=== PATIENT | female | born 1955 | race Caucasian/White ===

== ENCOUNTER 2016-09-15 14:33 | Emergency (ER) | payer MEDICARE, MEDICAID ==
[2016-09-15 14:51] VITALS: BP 159/79
--- NOTE | 2016-09-15 15:13 | EDM.PDOC ---
ED HPI GENERAL MEDICAL PROBLEM - General Chief Complaint: Neurological Problem Stated Complaint: SEIZURE Time Seen by Provider: 09/15/16 15:00 Source of Information: Reports: Other (caregiver) History Limitations: Reports: Other (pt has developmental delay, and is nonverbal) - History of Present Illness INITIAL COMMENTS - FREE TEXT/NARRATIVE: HISTORY AND PHYSICAL: History of present illness: [Patient is brought to the emergency room by her caregiver. Patient resides at a skilled nursing for other adults with developmental delay. Patient has a known history of seizure disorder. Seizures are not grand mal and typically last 1-2 minutes. Caregiver became concerned when seizure lasted 14-15 minutes. Patient is behaving normally since, and seems more tired than usual. Has had no recent changes from her usual medications. Has not had a fever, and appetite has been normal. Today she was at a group work site where she was with other members when the seizure occurred. No decreased appetite, nausea or vomiting. Has not had urinary incontinence, she wears an adult diaper, and is toileted regularly. She has otherwise been well lately. ] Review of systems: As per history of present illness and below otherwise all systems reviewed and negative. Past medical history: As per history of present illness and as reviewed below otherwise noncontributory. Surgical history: As per history of present illness and as reviewed below otherwise noncontributory. Social history: No reported history of drug or alcohol abuse. Family history: As per history of present illness and as reviewed below otherwise noncontributory. Physical exam: General: She is sitting in her wheelchair and appears comfortable. She is nonverbal and does not make eye contact, which is apparently normal for her. HEENT: Atraumatic, normocephalic. PERRLA. Lips appear moist. Lungs: Clear to auscultation, breath sounds equal bilaterally. Heart: S1S2, regular rate rhythm.negative for clicks, rubs, or JVD. Abdomen: Soft, nondistended, nontender. Pelvis: Stable nontender. Genitourinary: Deferred. Rectal: Deferred. Extremities: Atraumatic, negative for cords or calf pain. Neurovascular unremarkable. Diagnostics: [CBC, CMP] Impression: [seizures] Plan: [Discussed patient's seizure with her PCP Dr. Gagan Posada who recommends that patient be prescribed DiaStat and scheduled w/ local neurology. Pt is already scheduled to see Dr. Junior on 10/07/16. Order given for Diastat 10mg for seizures lasting longer than 5 minutes. Ok to repeat in 24 hours x 1 if needed. Strict follow up precautions are discussed. ] Definitive disposition and diagnosis as appropriate pending reevaluation and review of above. - Related Data Allergies Allergy/AdvReac Type Severity Reaction Status Date / Time carbamazepine [From Tegretol] Allergy Cannot Verified 09/20/15 19:49 Remember erythromycin base Allergy Cannot Verified 09/20/15 19:49 Remember Home Meds: Home Meds Multivitamin [Multivitamins] 1 tab PO DAILY 06/02/15 [History] Potassium Chloride [Klor-Con] 1 tab PO DAILY 06/02/15 [History] Sucralfate 1 gram PO QID 06/02/15 [History] carBAMazepine [Carbamazepine] 1 tab PO TID 06/02/15 [History] lamoTRIgine [Lamotrigine] 1 tab PO TID 06/02/15 [History] Past Medical History Gastrointestinal History: Reports: GERD Neurological History: Reports: Seizure Psychiatric History: Reports: Other (See Below) 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 - Physical Exam Exam: See Below Course - Vital Signs Last Recorded V/S: Last Vital Signs Temp 98.0 F 09/15/16 14:48 Pulse 89 09/15/16 14:48 Resp 16 09/15/16 14:48 BP 159/79 H 09/15/16 14:48 Pulse Ox 100 09/15/16 14:48 - Orders/Labs/Meds Labs: Laboratory Tests 09/15/16 09/15/16 Range/Units 15:27 15:27 WBC 9.49 (4.0-11.0) K/uL RBC 4.93 (4.30-5.90) M/uL Hgb 15.2 (12.0-16.0) g/dL Hct 44.9 (36.0-46.0) % MCV 91.1 (80.0-98.0) fL MCH 30.8 (27.0-32.0) pg MCHC 33.9 (31.0-37.0) g/dL RDW Std Deviation 43.0 (28.0-62.0) fl RDW Coeff of Amy 13 (11.0-15.0) % Plt Count 193 (150-400) K/uL MPV 10.50 (7.40-12.00) fL Add Manual Diff YES Neutrophils % (Manual) 39 L (48.0-80.0) % Band Neutrophils % 1 % Lymphocytes % (Manual) 43 H (16.0-40.0) % Monocytes % (Manual) 14 (0.0-15.0) % Eosinophils % (Manual) 2 (0.0-7.0) % Basophils % (Manual) 1 (0.0-1.5) % Nucleated RBC % 0.0 /100WBC Absolute Seg Neuts 3.7 Band Neutrophils # 0.1 Lymphocytes # (Manual) 4.1 Monocytes # (Manual) 1.3 Eosinophils # (Manual) 0.2 Basophils # (Manual) 0 Nucleated RBCs # 0 K/uL Sodium 140 (136-146) mmol/L Potassium 4.2 (3.5-5.1) mmol/L Chloride 108 (98-110) mmol/L Carbon Dioxide 20 L (21-31) mmol/L BUN 16 (6.0-23.0) mg/dL Creatinine 1.2 (0.6-1.5) mg/dL Est Cr Clr Drug Dosing TNP Estimated GFR (MDRD) 45.7 ml/min Glucose 89 (60-110) mg/dL Calcium 9.6 (8.8-10.8) mg/dL Total Bilirubin 0.2 (0.1-1.5) mg/dL AST 23 (5-40) IU/L ALT 20 (8-54) IU/L Alkaline Phosphatase 160 H (40-150) Total Protein 8.6 H (6.0-8.0) g/dL Albumin 4.5 (3.4-4.8) g/dL Globulin 4.1 H (2.0-3.5) g/dL Albumin/Globulin Ratio 1.1 L (1.3-2.8) Departure - Departure Time of Disposition: 16:05 Disposition: Home, Self-Care 01 Condition: good Clinical Impression: Seizures - Discharge Information Instructions: Nonepileptic Seizures Referrals: Gagan Posada MD [Primary Care Provider] - Forms: ED Department Discharge Additional Instructions: The following information is given to patients seen in the emergency department who are being discharged to home. This information is to outline your options for follow-up care. We provide all patients seen in our emergency department with a follow-up referral. The need for follow-up, as well as the timing and circumstances, are variable depending upon the specifics of your emergency department visit. If you don't have a primary care physician on staff, we will provide you with a referral. We always advise you to contact your personal physician following an emergency department visit to inform them of the circumstance of the visit and for follow-up with them and/or the need for any referrals to a consulting specialist. The emergency department will also refer you to a specialist when appropriate. This referral assures that you have the opportunity for follow-up care with a specialist. All of these measure are taken in an effort to provide you with optimal care, which includes your follow-up. Under all circumstances we always encourage you to contact your private physician who remains a resource for coordinating your care. When calling for follow-up care, please make the office aware that this follow-up is from your recent emergency room visit. If for any reason you are refused follow-up, please contact the [facility] emergency department at and asked to speak to the emergency department charge nurse. [facility] Special[facility] care- [facility] [address] [place] [address], [address] [place] [address] Followup as scheduled with Dr. Junior at the clinic listed above. Diastat as prescribed. return to ER as needed as discussed.
[2016-09-15 15:58] LABS: CHLORIDE,CL 108 mmol/L (98-110); SODIUM,NA 140 mmol/L (136-146)
== END 2016-09-15 16:18 | disposition home or self-care (01) ==
LOC: MW.ED 14:33
DX: R56.9 Unspecified convulsions (principal); K21.9 Gastro-esophageal reflux disease without esophagitis; Z98.890 Other specified postprocedural states; Z88.1 Allergy status to other antibiotic agents; Z88.8 Allergy status to other drugs, medicaments and biological substances
CPT/HCPCS: 36415; 80053; 85025; 99283; 99284

== ENCOUNTER 2016-11-05 18:29 | Emergency (ER) | payer MEDICARE, MEDICAID ==
--- NOTE | 2016-11-05 18:47 | EDM.PDOC ---
ED HPI GENERAL MEDICAL PROBLEM - General Chief Complaint: Laceration Stated Complaint: FALL/HIT HEAD Time Seen by Provider: 11/05/16 18:35 Source of Information: Reports: Patient History Limitations: Reports: No Limitations - History of Present Illness INITIAL COMMENTS - FREE TEXT/NARRATIVE: History of present illness: [61-year-old low functioning female brought in by care worker status post fall out of chair onto face. Macerated laceration midline to the forehead. Care provider indicated that the patient was presenting at her baseline, but there had been no loss of consciousness, nausea, or vomiting.] Review of systems: As per history of present illness and below otherwise all systems reviewed and negative. Past medical history: As per history of present illness and as reviewed below otherwise noncontributory. Surgical history: As per history of present illness and as reviewed below otherwise noncontributory. Social history: No reported history of drug or alcohol abuse. Family history: As per history of present illness and as reviewed below otherwise noncontributory. Physical exam: HEENT: Forehead midline macerated break in skin, normocephalic, pupils reactive , negative for conjunctival pallor or scleral icterus, mucous membranes moist, throat clear, neck supple, nontender, trachea midline. Lungs: Clear to auscultation, breath sounds equal bilaterally, chest nontender. Heart: S1S2, regular, negative for clicks, rubs, or JVD. Abdomen: Soft, nondistended, nontender. Negative for masses or hepatosplenomegaly. Negative for costovertebral tenderness. Pelvis: Stable nontender. Genitourinary: Deferred. Rectal: Deferred. Extremities: Atraumatic, negative for cords or calf pain. Neurovascular unremarkable. Neuro: Awake, alert, oriented. Cranial nerves II through XII unremarkable. Cerebellum unremarkable. Motor and sensory unremarkable throughout. Exam nonfocal. Skin: 2 and half to 3 cm macerated area to middle of forehead Area cleaned Steri-Strips applied Dermabond placed to approximated edges Due to macerated edges and patient's baseline mentation was determined this was the safest way to obtain any nature of closure Diagnostics: [CT of head] Therapeutics: [] Impression: [Concussion/laceration] Plan: [Antibiotics follow-up with PCP] Definitive disposition and diagnosis as appropriate pending reevaluation and review of above. - Related Data Allergies Allergy/AdvReac Type Severity Reaction Status Date / Time carbamazepine [From Tegretol] Allergy Cannot Verified 11/05/16 18:53 Remember erythromycin base Allergy Cannot Verified 11/05/16 18:53 Remember Home Meds: Home Meds Cephalexin [Keflex] 500 mg PO QID #40 capsule 11/05/16 [Rx] Multivitamin [Multivitamins] 1 tab PO DAILY 11/05/16 [History] Potassium Chloride [Klor-Con M20] 20 meq PO DAILY 11/05/16 [History] Sucralfate 1 gm PO QID 11/05/16 [History] carBAMazepine [Carbamazepine] 1 tab PO TID 11/05/16 [History] lamoTRIgine [Lamotrigine] 100 mg PO ASDIRECTED 11/05/16 [History] Past Medical History Gastrointestinal History: Reports: GERD Neurological History: Reports: Seizure Psychiatric History: Reports: Other (See Below) 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 - Past Surgical History HEENT Surgical History: Reports: Oral Surgery Musculoskeletal Surgical History: Reports: Other (See Below) Other Musculoskeletal Surgeries/Procedures:: foot surgery, dislocated shoulder Social & Family History - Family History Family Medical History: Unobtainable - Tobacco Use Smoking Status *Q: Never Smoker Second Hand Smoke Exposure: No - Recreational Drug Use Recreational Drug Use: No ED ROS GENERAL - Review of Systems Review Of Systems: See Below (History of present illness) ED EXAM, SKIN/RASH Exam: See Below (See history of present illness) Course - Vital Signs Last Recorded V/S: Last Vital Signs Temp 36.7 C 11/05/16 18:35 Pulse 83 11/05/16 18:35 Resp 18 11/05/16 18:35 BP Pulse Ox 96 11/05/16 18:35 - Orders/Labs/Meds Orders: Active Orders 24 hr Category Date Time Status Head wo Cont [CT] Stat Exams 11/05/16 18:42 Taken Meds: Medications Discontinued Medications Generic Name Dose Route Start Last Admin Trade Name Freq PRN Reason Stop Dose Admin Octyl Cyanoacrylate 1 applic 11/05/16 19:27 Dermabond Advance TOP 11/05/16 19:28 ONETIME ONE Departure - Departure Time of Disposition: 19:51 Disposition: Home, Self-Care 01 Condition: Good Clinical Impression: Broken skin, Contusion, Concussion - Discharge Information Forms: ED Department Discharge Additional Instructions: The following information is given to patients seen in the emergency department who are being discharged to home. This information is to outline your options for follow-up care. We provide all patients seen in our emergency department with a follow-up referral. The need for follow-up, as well as the timing and circumstances, are variable depending upon the specifics of your emergency department visit. If you don't have a primary care physician on staff, we will provide you with a referral. We always advise you to contact your personal physician following an emergency department visit to inform them of the circumstance of the visit and for follow-up with them and/or the need for any referrals to a consulting specialist. The emergency department will also refer you to a specialist when appropriate. This referral assures that you have the opportunity for follow-up care with a specialist. All of these measure are taken in an effort to provide you with optimal care, which includes your follow-up. Under all circumstances we always encourage you to contact your private physician who remains a resource for coordinating your care. When calling for follow-up care, please make the office aware that this follow-up is from your recent emergency room visit. If for any reason you are refused follow-up, please contact the [facility] Emergency Department at and asked to speak to the emergency department charge nurse. Provide antibiotics the patient Wake her every 2-4 hours to determine that she still her baseline for the next 24 hours Patient starts acting somnolent has nausea vomiting or is not herself return to the ED Follow-up with primary care provider once 2 days Return to ED as needed as discussed - My Orders Last 24 Hours: My Active Orders 11/05/16 18:42 Head wo Cont [CT] Stat - Assessment/Plan Last 24 Hours: My Active Orders 11/05/16 18:42 Head wo Cont [CT] Stat
[2016-11-05] MEDS ORDERED: Octyl 2-Cyanoacrylate 1 Tube TOP ONE (19:27)
[2016-11-05 20:26] VITALS: BP 124/68
--- NOTE | 2016-11-07 13:10 | CT ---
EXAM DATE: 11/05/16 PATIENT'S AGE: 61 Patient: KEANU MILNER Facility: [place], [place] Site . Site : [id number] Study: CT Head [id number] 7:15:41 PM Ordering Physician: Doctor Rice Final Report: INDICATION: Laceration to the forehead. TECHNIQUE: Noncontrast head CT. COMPARISON: February 23, 2013. FINDINGS: Again noted is rather marked cerebellar atrophy. There is also cerebral atrophy. 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 This may be related to a congenital anomaly. No calvarial or skullbase fracture identified. The included paranasal sinuses and mastoid air cells are clear except for minor mucosal thickening in the inferior right maxillary sinus. There is likely is a soft tissue defect along the frontal bone presumably related to a laceration. IMPRESSION: 1. No acute intracranial hemorrhage. Chronic changes including atrophy of the cerebellar hemispheres and less so the cerebral hemispheres with ventriculomegaly and enlargement of the 4th ventricle. 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 2. No calvarial or skullbase fracture. 3. Incidental note is made of a skin defect overlying the frontal bone which may reflect the patient`s laceration. Dictated by Dilshad Saldaña MD @ 11/05/2016 7:46:02 PM Dictated by: Dilshad Saldaña MD @ 11/05/2016 19:46:11 (Electronic Signature) Report Signed by Proxy. XU
== END 2016-11-05 20:15 | disposition home or self-care (01) ==
LOC: MW.ED 18:29
DX: S06.0X0A Concussion without loss of consciousness, initial encounter (principal); S01.81XA Laceration without foreign body of other part of head, initial encounter; K21.9 Gastro-esophageal reflux disease without esophagitis; Z88.1 Allergy status to other antibiotic agents; Z79.899 Other long term (current) drug therapy; W01.10XA Fall on same level from slipping, tripping and stumbling with subsequent striking against unspecified object, initial encounter
CPT/HCPCS: 12011; 70450; 99283; A9270

== ENCOUNTER 2017-05-23 11:23 | Emergency (ER) | payer MEDICARE, MEDICAID ==
--- NOTE | 2017-05-23 11:40 | EDM.PDOC ---
ED HPI GENERAL MEDICAL PROBLEM - General Chief Complaint: Respiratory Problem Stated Complaint: COUGH Time Seen by Provider: 05/23/17 11:39 Source of Information: Reports: Patient - History of Present Illness INITIAL COMMENTS - FREE TEXT/NARRATIVE: HISTORY AND PHYSICAL: History of present illness: [Patient presents with cough, she is nonverbal, she presents from the [facility] with a care worker No fever nausea vomiting chills sweats ] Review of systems: As per history of present illness and below otherwise all systems reviewed and negative. Past medical history: As per history of present illness and as reviewed below otherwise noncontributory. Surgical history: As per history of present illness and as reviewed below otherwise noncontributory. Social history: No reported history of drug or alcohol abuse. Family history: As per history of present illness and as reviewed below otherwise noncontributory. Physical exam: HEENT: Atraumatic, normocephalic, pupils reactive, negative for conjunctival pallor or scleral icterus, mucous membranes moist, throat clear, neck supple, nontender, trachea midline. Lungs: Clear to auscultation, breath sounds equal bilaterally, chest nontender. Heart: S1S2, regular, negative for clicks, rubs, or JVD. Abdomen: Soft, nondistended, nontender. Negative for masses or hepatosplenomegaly. Negative for costovertebral tenderness. Pelvis: Stable nontender. Genitourinary: Deferred. Rectal: Deferred. Extremities: Atraumatic, negative for cords or calf pain. Neurovascular unremarkable. Neuro: Awake, alert, oriented. Cranial nerves II through XII unremarkable. Cerebellum unremarkable. Motor and sensory unremarkable throughout. Exam nonfocal. Diagnostics: [Chest 2 views Influenza A ] Therapeutics: [Levaquin 500 milligrams by mouth daily #10 no refill Continue current medications Return if symptoms persist or worsen or new concerning symptoms develop ] Impression: [Cough Consolidation/left basilar infiltrate likely pneumonia] Definitive disposition and diagnosis as appropriate pending reevaluation and review of above. - Related Data Allergies Allergy/AdvReac Type Severity Reaction Status Date / Time carbamazepine [From Tegretol] Allergy Cannot Verified 11/05/16 18:53 Remember erythromycin base Allergy Cannot Verified 11/05/16 18:53 Remember Home Meds: Home Meds Cephalexin [Keflex] 500 mg PO QID #40 capsule 11/05/16 [Rx] Multivitamin [Multivitamins] 1 tab PO DAILY 11/05/16 [History] Potassium Chloride [Klor-Con M20] 20 meq PO DAILY 11/05/16 [History] Sucralfate 1 gm PO QID 11/05/16 [History] carBAMazepine [Carbamazepine] 1 tab PO TID 11/05/16 [History] lamoTRIgine [Lamotrigine] 100 mg PO ASDIRECTED 11/05/16 [History] Past Medical History Gastrointestinal History: Reports: GERD Neurological History: Reports: Seizure Psychiatric History: Reports: Other (See Below) 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 ED EXAM, GENERAL - Physical Exam Exam: See Below Course - Vital Signs Last Recorded V/S: Last Vital Signs Temp 98.1 F 05/23/17 11:40 Pulse 95 05/23/17 11:40 Resp 20 05/23/17 11:40 BP 121/81 05/23/17 11:40 Pulse Ox 94 L 05/23/17 11:40 Departure - Departure Time of Disposition: 13:13 Disposition: Home, Self-Care 01 Condition: Good Clinical Impression: Pneumonia - Discharge Information Referrals: Gagan Posada MD [Primary Care Provider] - Forms: ED Department Discharge Additional Instructions: Medication as prescribed Return if symptoms persist or worsen or new concerning symptoms develop [id number] symptomatic therapies as needed The following information is given to patients seen in the emergency department who are being discharged to home. This information is to outline your options for follow-up care. We provide all patients seen in our emergency department with a follow-up referral. The need for follow-up, as well as the timing and circumstances, are variable depending upon the specifics of your emergency department visit. If you don't have a primary care physician on staff, we will provide you with a referral. We always advise you to contact your personal physician following an emergency department visit to inform them of the circumstance of the visit and for follow-up with them and/or the need for any referrals to a consulting specialist. The emergency department will also refer you to a specialist when appropriate. This referral assures that you have the opportunity for follow-up care with a specialist. All of these measure are taken in an effort to provide you with optimal care, which includes your follow-up. Under all circumstances we always encourage you to contact your private physician who remains a resource for coordinating your care. When calling for follow-up care, please make the office aware that this follow-up is from your recent emergency room visit. If for any reason you are refused follow-up, please contact the [facility] emergency department at and asked to speak to the emergency department charge nurse.
--- NOTE | 2017-05-23 13:01 | CR ---
EXAMINATION: Two-view chest (PA and Lateral views). HISTORY: Shortness of breath. FINDINGS: The trachea is midline. The heart is mildly enlarged. There is left basilar infiltrate noted. Trace p leural effusion is not excluded. No pneumothorax. Osseous structures appear unremarkable. IMPRESSION: 1. Left basilar consolidation, likely pneumonia.
[2017-05-23 19:13] VITALS: BP 121/82
== END 2017-05-23 13:24 | disposition home or self-care (01) ==
LOC: MW.ED 11:23
DX: J18.9 Pneumonia, unspecified organism (principal); K21.9 Gastro-esophageal reflux disease without esophagitis; Z88.1 Allergy status to other antibiotic agents; Z79.899 Other long term (current) drug therapy
CPT/HCPCS: 71046; 71046-26; 87804; 99283

== ENCOUNTER 2017-08-09 16:27 | Emergency (ER) | payer MEDICARE, MEDICAID ==
[2017-08-09] MEDS ORDERED: Sodium Chloride 0.9% 500 ML IV SCH (17:00)
--- NOTE | 2017-08-09 17:05 | EDM.PDOC ---
ED HPI GENERAL MEDICAL PROBLEM - General Chief Complaint: Lower Extremity Injury/Pain Stated Complaint: CELLULITIS Time Seen by Provider: 08/09/17 17:05 Source of Information: Reports: Patient - History of Present Illness INITIAL COMMENTS - FREE TEXT/NARRATIVE: HISTORY AND PHYSICAL: History of present illness: [Patient presents with a cellulitis of her right foot, is a small lesion approximately 3 inches long by 2 inches wide on the lateral right foot essentially extending around an old surgical scar, this is from the very remote past. Patient is nonverbal and cannot provide history of any trauma or review of systems ] Review of systems: As per history of present illness and below otherwise all systems reviewed and negative. Past medical history: As per history of present illness and as reviewed below otherwise noncontributory. Surgical history: As per history of present illness and as reviewed below otherwise noncontributory. Social history: No reported history of drug or alcohol abuse. Family history: As per history of present illness and as reviewed below otherwise noncontributory. Physical exam: HEENT: Atraumatic, normocephalic, pupils reactive, negative for conjunctival pallor or scleral icterus, mucous membranes moist, throat clear, neck supple, nontender, trachea midline. Lungs: Clear to auscultation, breath sounds equal bilaterally, chest nontender. Heart: S1S2, regular, negative for clicks, rubs, or JVD. Abdomen: Soft, nondistended, nontender. Negative for masses or hepatosplenomegaly. Negative for costovertebral tenderness. Pelvis: Stable nontender. Genitourinary: Deferred. Rectal: Deferred. Extremities: Atraumatic, negative for cords or calf pain. Neurovascular unremarkable. Neuro: Awake, alert, oriented. Cranial nerves II through XII unremarkable. Cerebellum unremarkable. Motor and sensory unremarkable throughout. Exam nonfocal. Right foot unaffected above the ankle, chronic changes noted of the foot old surgical scar noted redness tenderness with mild swelling surrounding the old surgical scar otherwise neurovascularly intact capillary refill in 3 seconds no open lesion on skin Left foot unaffected capillary refill and 3 seconds neurovascularly intact Diagnostics: [CBC CMP UA blood cultures ]X-ray right foot 3 views Therapeutics: [Extremities strength by mouth twice a day #20 no refill first dose provided now Follow-up with primary care within 1 week for recheck Return if symptomssist or worsen despite treatment ] Impression: [Cellulitis left foot] Definitive disposition and diagnosis as appropriate pending reevaluation and review of above. - Related Data Allergies Allergy/AdvReac Type Severity Reaction Status Date / Time carbamazepine [From Tegretol] Allergy Cannot Verified 11/05/16 18:53 Remember erythromycin base Allergy Cannot Verified 11/05/16 18:53 Remember Home Meds: Home Meds Multivitamin [Multivitamins] 1 tab PO DAILY 11/05/16 [History] Potassium Chloride [Klor-Con M20] 20 meq PO DAILY 11/05/16 [History] Sucralfate 1 gm PO QID 11/05/16 [History] carBAMazepine [Carbamazepine] 1 tab PO TID 11/05/16 [History] lamoTRIgine [Lamotrigine] 100 mg PO TID 11/05/16 [History] Past Medical History Gastrointestinal History: Reports: GERD Neurological History: Reports: Seizure Psychiatric History: Reports: Other (See Below) Other Psychiatric History: mentally disabled Endocrine/Metabolic History: Reports: [place]'s Disease - Past Surgical History HEENT Surgical History: Reports: Oral Surgery Musculoskeletal Surgical History: Reports: Other (See Below) Other Musculoskeletal Surgeries/Procedures:: foot surgery, dislocated shoulder Social & Family History - Family History Family Medical History: Unobtainable - Tobacco Use Smoking Status *Q: Never Smoker Second Hand Smoke Exposure: No - Caffeine Use Caffeine Use: Reports: None - Recreational Drug Use Recreational Drug Use: No Review of Systems - Review of Systems Review Of Systems: ROS reveals no pertinent complaints other than HPI. ED EXAM, GENERAL - Physical Exam Exam: See Below Course - Vital Signs Last Recorded V/S: Last Vital Signs Temp 98.0 F 08/09/17 17:16 Pulse 75 08/09/17 17:16 Resp 18 08/09/17 17:16 BP 126/79 08/09/17 17:16 Pulse Ox 95 08/09/17 17:16 - Orders/Labs/Meds Orders: Active Orders 24 hr Category Date Time Status Foot Comp Min 3V Rt [CR] Stat Exams 08/09/17 17:20 Taken CULTURE BLOOD [BC] Stat Lab 08/09/17 17:15 Received CULTURE BLOOD [BC] Stat Lab 08/09/17 17:25 Received UA W/MICROSCOPIC [URIN] Stat Lab 08/09/17 16:57 Ordered Sodium Chloride 0.9% [Normal Saline] 500 ml Med 08/09/17 17:00 Active IV STAT Blood Culture x2 Reflex Set [OM.PC] Stat Oth 08/09/17 16:57 Ordered Medication Orders Sodium Chloride (Normal Saline) 500 mls @ 999 mls/hr IV STAT AUGIE Last Admin: 08/09/17 17:31 Dose: 999 mls/hr Labs: Laboratory Tests 08/09/17 08/09/17 Range/Units 17:15 17:15 WBC 8.81 (4.0-11.0) K/uL RBC 4.36 (4.30-5.90) M/uL Hgb 12.9 (12.0-16.0) g/dL Hct 39.4 (36.0-46.0) % MCV 90.4 (80.0-98.0) fL MCH 29.6 (27.0-32.0) pg MCHC 32.7 (31.0-37.0) g/dL RDW Std Deviation 49.1 (28.0-62.0) fl RDW Coeff of Amy 15 (11.0-15.0) % Plt Count 240 (150-400) K/uL MPV 10.50 (7.40-12.00) fL Neut % (Auto) 35.9 L (48.0-80.0) % Lymph % (Auto) 47.2 H (16.0-40.0) % Frontier % (Auto) 13.6 (0.0-15.0) % Eos % (Auto) 3.0 (0.0-7.0) % Baso % (Auto) 0.3 (0.0-1.5) % Neut # (Auto) 3.2 (1.4-5.7) K/uL Lymph # (Auto) 4.2 H (0.6-2.4) K/uL Frontier # (Auto) 1.2 H (0.0-0.8) K/uL Eos # (Auto) 0.3 (0.0-0.7) K/uL Baso # (Auto) 0.0 (0.0-0.1) K/uL Nucleated RBC % 0.0 /100WBC Nucleated RBCs # 0 K/uL Sodium 142 (136-145) mmol/L Potassium 4.1 (3.5-5.1) mmol/L Chloride 107 (98-107) mmol/L Carbon Dioxide 23.5 (21.0-32.0) mmol/L BUN 22 H (7.0-18.0) mg/dL Creatinine 0.7 (0.6-1.0) mg/dL Est Cr Clr Drug Dosing 51.91 mL/min Estimated GFR (MDRD) > 60.0 ml/min Glucose 95 (74-106) mg/dL Calcium 9.4 (8.5-10.1) mg/dL Total Bilirubin 0.2 (0.2-1.0) mg/dL AST 21 (15-37) IU/L ALT 22 (14-63) IU/L Alkaline Phosphatase 158 H (46-116) U/L Total Protein 8.3 H (6.4-8.2) g/dL Albumin 3.5 (3.4-5.0) g/dL Globulin 4.8 H (2.0-3.5) g/dL Albumin/Globulin Ratio 0.7 L (1.3-2.8) Meds: Medications Generic Name Dose Route Start Last Admin Trade Name Freq PRN Reason Stop Dose Admin Sodium Chloride 500 mls @ 999 mls/hr 08/09/17 17:00 08/09/17 17:31 Normal Saline IV 999 mls/hr STAT AUGIE Administration Departure - Departure Time of Disposition: 18:34 Disposition: Home, Self-Care 01 Condition: Good Clinical Impression: Cellulitis - Discharge Information Referrals: PCP,None [Primary Care Provider] - Forms: ED Department Discharge Additional Instructions: Medication as prescribed Return if symptoms persist or worsen or fever nausea vomiting chills sweats despite antibiotics Follow-up with primary care for recheck in one week [address] [address] [address] Gagan Posada The following information is given to patients seen in the emergency department who are being discharged to home. This information is to outline your options for follow-up care. We provide all patients seen in our emergency department with a follow-up referral. The need for follow-up, as well as the timing and circumstances, are variable depending upon the specifics of your emergency department visit. If you don't have a primary care physician on staff, we will provide you with a referral. We always advise you to contact your personal physician following an emergency department visit to inform them of the circumstance of the visit and for follow-up with them and/or the need for any referrals to a consulting specialist. The emergency department will also refer you to a specialist when appropriate. This referral assures that you have the opportunity for follow-up care with a specialist. All of these measure are taken in an effort to provide you with optimal care, which includes your follow-up. Under all circumstances we always encourage you to contact your private physician who remains a resource for coordinating your care. When calling for follow-up care, please make the office aware that this follow-up is from your recent emergency room visit. If for any reason you are refused follow-up, please contact the [facility] emergency department at and asked to speak to the emergency department charge nurse. - My Orders Last 24 Hours: My Active Orders 08/09/17 16:57 UA W/MICROSCOPIC [URIN] Stat Blood Culture x2 Reflex Set [OM.PC] Stat 08/09/17 17:00 Sodium Chloride 0.9% [Normal Saline] 500 ml IV STAT 08/09/17 17:15 CULTURE BLOOD [BC] Stat 08/09/17 17:20 Foot Comp Min 3V Rt [CR] Stat 08/09/17 17:25 CULTURE BLOOD [BC] Stat - Assessment/Plan Last 24 Hours: My Active Orders 08/09/17 16:57 UA W/MICROSCOPIC [URIN] Stat Blood Culture x2 Reflex Set [OM.PC] Stat 08/09/17 17:00 Sodium Chloride 0.9% [Normal Saline] 500 ml IV STAT 08/09/17 17:15 CULTURE BLOOD [BC] Stat 08/09/17 17:20 Foot Comp Min 3V Rt [CR] Stat 08/09/17 17:25 CULTURE BLOOD [BC] Stat
[2017-08-09 18:09] LABS: CHLORIDE,CL 107 mmol/L (98-107); SODIUM,NA 142 mmol/L (136-145)
[2017-08-09] MEDS ORDERED: Sulfamethoxazole/Trimethoprim 800-160 MG Tab PO ONE (18:36)
[2017-08-09 19:09] VITALS: BP 123/60
--- NOTE | 2017-08-10 09:50 | CR ---
EXAM DATE: 08/09/17 PATIENT'S AGE: 62 Patient: KEANU MILNER Facility: [place], [place] Site . Site : 1955 Study: XRay Extremity Right foot [id number] 6:09:08 PM Ordering Physician: Be Cruz Final Report: INDICATION: Pain TECHNIQUE: Two views right foot. FINDINGS: Three metallic alisha are seen in the bones of the right mid and hindfoot. Moderate degenerative arthritis right foot. Marked osteopenia. Partial fusion of many of the joints of the right mid and hindfoot. Moderate diffuse soft tissue swelling right foot especially dorsally. Partial subluxation and deformity of the right great toe likely chronic. No obvious fracture in right foot. Degenerative arthritis right ankle. Remainder negative. Dictated by Ron Laird MD @ Aug 09 2017 6:19PM (Electronic Signature) Report Signed by Proxy. XU
== END 2017-08-09 19:05 | disposition home or self-care (01) ==
LOC: MW.ED 16:27
DX: L03.115 Cellulitis of right lower limb (principal); Z79.899 Other long term (current) drug therapy; Z88.1 Allergy status to other antibiotic agents; Z88.8 Allergy status to other drugs, medicaments and biological substances
CPT/HCPCS: 36415; 73630; 80053; 85025; 87040; 96360; 99283; J7040

== ENCOUNTER 2017-10-13 18:26 | Emergency (ER) | payer MEDICARE, MEDICAID ==
--- NOTE | 2017-10-13 19:07 | EDM.PDOC ---
ED HPI GENERAL MEDICAL PROBLEM - General Chief Complaint: General Stated Complaint: SWOLLEN JAW Time Seen by Provider: 10/13/17 19:05 Source of Information: Reports: Patient - History of Present Illness INITIAL COMMENTS - FREE TEXT/NARRATIVE: HISTORY AND PHYSICAL: History of present illness: [Patient presents with swelling along left lower jawline and tenderness she is nonverbal patient she has poor dentition multiple tooth removal noted swelling and tenderness along the jawline she does not provide review of systems ] Review of systems: As per history of present illness and below otherwise all systems reviewed and negative. Past medical history: As per history of present illness and as reviewed below otherwise noncontributory. Surgical history: As per history of present illness and as reviewed below otherwise noncontributory. Social history: No reported history of drug or alcohol abuse. Family history: As per history of present illness and as reviewed below otherwise noncontributory. Physical exam: HEENT: Atraumatic, normocephalic, pupils reactive, negative for conjunctival pallor or scleral icterus, mucous membranes moist, throat clear, neck supple, nontender, trachea midline. Swelling and tenderness along left lower jaw Consistent with early dental abscess Lungs: Clear to auscultation, breath sounds equal bilaterally, chest nontender. Heart: S1S2, regular, negative for clicks, rubs, or JVD. Abdomen: Soft, nondistended, nontender. Negative for masses or hepatosplenomegaly. Negative for costovertebral tenderness. Pelvis: Stable nontender. Genitourinary: Deferred. Rectal: Deferred. Extremities: Atraumatic, negative for cords or calf pain. Neurovascular unremarkable. Neuro: Awake, alert, oriented. Cranial nerves II through XII unremarkable. Cerebellum unremarkable. Motor and sensory unremarkable throughout. Exam nonfocal. Diagnostics: [Clinical ] Therapeutics: [Amoxicillin ] Impression: [ dental abscess ] Definitive disposition and diagnosis as appropriate pending reevaluation and review of above. - Related Data Allergies Allergy/AdvReac Type Severity Reaction Status Date / Time carbamazepine [From Tegretol] Allergy Cannot Verified 11/05/16 18:53 Remember erythromycin base Allergy Cannot Verified 11/05/16 18:53 Remember Home Meds: Home Meds Multivitamin [Multivitamins] 1 tab PO DAILY 11/05/16 [History] Potassium Chloride [Klor-Con M20] 20 meq PO DAILY 11/05/16 [History] Sucralfate 1 gm PO QID 11/05/16 [History] carBAMazepine [Carbamazepine] 1 tab PO TID 11/05/16 [History] lamoTRIgine [Lamotrigine] 100 mg PO TID 11/05/16 [History] Past Medical History HEENT History: Reports: Other (See Below) Other HEENT History: dysphagia Cardiovascular History: Reports: Other (See Below) Other Cardiovascular History: bilateral lower extremity edema Gastrointestinal History: Reports: GERD Musculoskeletal History: Reports: Other (See Below) Neurological History: Reports: Seizure Psychiatric History: Reports: Other (See Below) Other Psychiatric History: mentally disabled Endocrine/Metabolic History: Reports: [place]'s Disease - Past Surgical History HEENT Surgical History: Reports: Oral Surgery Musculoskeletal Surgical History: Reports: Other (See Below) Other Musculoskeletal Surgeries/Procedures:: foot surgery, dislocated shoulder Social & Family History - Family History Family Medical History: Unobtainable - Tobacco Use Smoking Status *Q: Never Smoker - Caffeine Use Caffeine Use: Reports: None ED ROS GENERAL - Review of Systems Review Of Systems: See Below ED EXAM, GENERAL - Physical Exam Exam: See Below Course - Vital Signs Last Recorded V/S: Last Vital Signs Temp 96.5 F 10/13/17 18:46 Pulse 111 H 10/13/17 18:46 Resp 20 10/13/17 18:46 BP 98/77 10/13/17 18:46 Pulse Ox 96 10/13/17 18:46 Departure - Departure Time of Disposition: 19:06 Disposition: Home, Self-Care 01 Condition: Good Clinical Impression: Dental abscess - Discharge Information Referrals: PCP,None [Primary Care Provider] - Additional Instructions: Medication as prescribed Return if symptoms persist or worsen Follow-up with dentist as soon as possible The following information is given to patients seen in the emergency department who are being discharged to home. This information is to outline your options for follow-up care. We provide all patients seen in our emergency department with a follow-up referral. The need for follow-up, as well as the timing and circumstances, are variable depending upon the specifics of your emergency department visit. If you don't have a primary care physician on staff, we will provide you with a referral. We always advise you to contact your personal physician following an emergency department visit to inform them of the circumstance of the visit and for follow-up with them and/or the need for any referrals to a consulting specialist. The emergency department will also refer you to a specialist when appropriate. This referral assures that you have the opportunity for follow-up care with a specialist. All of these measure are taken in an effort to provide you with optimal care, which includes your follow-up. Under all circumstances we always encourage you to contact your private physician who remains a resource for coordinating your care. When calling for follow-up care, please make the office aware that this follow-up is from your recent emergency room visit. If for any reason you are refused follow-up, please contact the [facility] emergency department at and asked to speak to the emergency department charge nurse.
[2017-10-13 19:53] VITALS: BP 98/68
== END 2017-10-13 19:15 | disposition home or self-care (01) ==
LOC: MW.ED 18:26
DX: K04.7 Periapical abscess without sinus (principal); Z88.1 Allergy status to other antibiotic agents; Z79.899 Other long term (current) drug therapy
CPT/HCPCS: 99283

== ENCOUNTER 2017-10-24 17:38 | Emergency (ER) | payer MEDICARE, MEDICAID ==
--- NOTE | 2017-10-24 17:41 | EDM.PDOC ---
ED HPI GENERAL MEDICAL PROBLEM - General Stated Complaint: seisures Time Seen by Provider: 10/24/17 17:40 Source of Information: Reports: Patient History Limitations: Reports: No Limitations - History of Present Illness INITIAL COMMENTS - FREE TEXT/NARRATIVE: History of present illness: []Patient brought in by caregiver from [facility] after having had 2 prolonged seizures at her care facility. First one lasted 12 minutes and she received rectal Diastat as per protocol. She briefly stopped seizing but shortly shortly had another seizure lasting 2 minutes. Patient received a total of 10 mg of Diastat rectally before coming to the ED. Patient was sitting in a chair dining room when it occurred she had no falls and did not sustain any injuries. Her caregiver who knows her well at the bedside states she is back to baseline except for being a bit sleepy. Patient just completed amoxicillin for dental abscess. Review of systems: As per history of present illness and below otherwise all systems reviewed and negative. Past medical history: As per history of present illness and as reviewed below otherwise noncontributory. Surgical history: As per history of present illness and as reviewed below otherwise noncontributory. Social history: No reported history of drug or alcohol abuse. Family history: As per history of present illness and as reviewed below otherwise noncontributory. Physical exam: General: Well developed, well nourished in NAD HEENT: Atraumatic, normocephalic, pupils reactive, negative for conjunctival pallor or scleral icterus, mucous membranes moist, throat clear, neck supple, nontender, trachea midline. Lungs: Clear to auscultation, breath sounds equal bilaterally, chest nontender. Heart: S1S2, regular, negative for clicks, rubs, or JVD. Abdomen: Soft, nondistended, nontender. Negative for masses or hepatosplenomegaly. Negative for costovertebral tenderness. Pelvis: Stable nontender. Genitourinary: Deferred. Rectal: Deferred. Extremities: Atraumatic, negative for cords or calf pain. Neurovascular unremarkable. Neuro: Awake, alert, oriented. Cranial nerves II through XII unremarkable. Cerebellum unremarkable. Motor and sensory unremarkable throughout. Exam nonfocal. Diagnostics: []Glucose 72 Therapeutics: []Patient was observed caregiver at bedside dates that she is back to normal. She tolerated a sandwich and applesauce Impression: []Breakthrough seizures Plan: []Continue regular meds follow-up with primary care Definitive disposition and diagnosis as appropriate pending reevaluation and review of above. - Related Data Allergies Allergy/AdvReac Type Severity Reaction Status Date / Time carbamazepine [From Tegretol] Allergy Cannot Verified 10/24/17 17:45 Remember erythromycin base Allergy Cannot Verified 10/24/17 17:45 Remember Home Meds: Home Meds Multivitamin [Multivitamins] 1 tab PO DAILY 11/05/16 [History] Potassium Chloride [Klor-Con M20] 20 meq PO DAILY 11/05/16 [History] Sucralfate 1 gm PO QID 11/05/16 [History] carBAMazepine [Carbamazepine] 1 tab PO TID 11/05/16 [History] lamoTRIgine [Lamotrigine] 100 mg PO TID 11/05/16 [History] Diazepam [Valium] 10 mg RECTAL ASDIRECTED PRN 10/24/17 [History] Past Medical History HEENT History: Reports: Other (See Below) Other HEENT History: dysphagia Cardiovascular History: Reports: Other (See Below) Other Cardiovascular History: bilateral lower extremity edema Gastrointestinal History: Reports: GERD Musculoskeletal History: Reports: Other (See Below) Neurological History: Reports: Seizure Psychiatric History: Reports: Other (See Below) Other Psychiatric History: mentally disabled Endocrine/Metabolic History: Reports: [place]'s Disease - Past Surgical History HEENT Surgical History: Reports: Oral Surgery Musculoskeletal Surgical History: Reports: Other (See Below) Other Musculoskeletal Surgeries/Procedures:: foot surgery, dislocated shoulder Social & Family History - Family History Family Medical History: Unobtainable - Caffeine Use Caffeine Use: Reports: None ED ROS GENERAL - Review of Systems Review Of Systems: See Below (see history of) - Physical Exam Exam: See Below (See history of present illness) Course - Vital Signs Last Recorded V/S: Last Vital Signs Temp 98.7 F 10/24/17 17:48 Pulse 84 10/24/17 17:48 Resp 16 10/24/17 17:48 BP 126/77 10/24/17 17:48 Pulse Ox 99 10/24/17 17:48 - Orders/Labs/Meds Orders: Active Orders 24 hr Category Date Time Status POC Glucose [Blood Glucose Check, Bedside] [RC] ONETIME Care 10/24/17 17:55 Active Sodium Chloride 0.9% [Normal Saline] 250 ml Med 10/24/17 18:15 Active IV ASDIRECTED Medication Orders Sodium Chloride (Normal Saline) 250 mls @ 50 mls/hr IV ASDIRECTED AUGIE Last Admin: 10/24/17 18:17 Dose: 50 mls/hr Labs: Laboratory Tests 10/24/17 Range/Units 18:09 POC Glucose 72 (60-110) mg/dL Meds: Medications Generic Name Dose Route Start Last Admin Trade Name Shonda PRN Reason Stop Dose Admin Sodium Chloride 250 mls @ 50 mls/hr 10/24/17 18:15 10/24/17 18:17 Normal Saline IV 50 mls/hr ASDIRECTED AUGIE Administration Departure - Departure Time of Disposition: 18:39 Disposition: Home, Self-Care 01 Condition: Good Clinical Impression: Breakthrough seizure - Discharge Information Additional Instructions: The following information is given to patients seen in the emergency department who are being discharged to home. This information is to outline your options for follow-up care. We provide all patients seen in our emergency department with a follow-up referral. The need for follow-up, as well as the timing and circumstances, are variable depending upon the specifics of your emergency department visit. If you don't have a primary care physician on staff, we will provide you with a referral. We always advise you to contact your personal physician following an emergency department visit to inform them of the circumstance of the visit and for follow-up with them and/or the need for any referrals to a consulting specialist. The emergency department will also refer you to a specialist when appropriate. This referral assures that you have the opportunity for follow-up care with a specialist. All of these measure are taken in an effort to provide you with optimal care, which includes your follow-up. Under all circumstances we always encourage you to contact your private physician who remains a resource for coordinating your care. When calling for follow-up care, please make the office aware that this follow-up is from your recent emergency room visit. If for any reason you are refused follow-up, please contact the [facility] Emergency Department at and asked to speak to the emergency department charge nurse. [facility] [address] [place] [id number] - My Orders Last 24 Hours: My Active Orders 10/24/17 17:55 POC Glucose [Blood Glucose Check, Bedside] [] ONETIME 10/24/17 18:15 Sodium Chloride 0.9% [Normal Saline] 250 ml IV ASDIRECTED - Assessment/Plan Last 24 Hours: My Active Orders 10/24/17 17:55 POC Glucose [Blood Glucose Check, Bedside] [] ONETIME 10/24/17 18:15 Sodium Chloride 0.9% [Normal Saline] 250 ml IV ASDIRECTED
[2017-10-24] MEDS ORDERED: Sodium Chloride 0.9% 250 ML IV SCH (18:15)
[2017-10-24 18:58] VITALS: BP 133/75
== END 2017-10-24 18:55 | disposition home or self-care (01) ==
LOC: MW.ED 17:38
DX: G40.909 Epilepsy, unspecified, not intractable, without status epilepticus (principal); K21.9 Gastro-esophageal reflux disease without esophagitis; Z88.1 Allergy status to other antibiotic agents; Z79.899 Other long term (current) drug therapy
CPT/HCPCS: 82962; 96360; 99284; J7050; 99283

== ENCOUNTER 2025-03-08 15:28 | Emergency (ER) | payer MEDICARE, MEDICAID ==
[2025-03-08 19:54] VITALS: BP 131/69; PULSE 76
== END 2025-03-08 19:53 | disposition home or self-care (01) ==
LOC: MW.ED 15:28
DX: S01.111A Laceration without foreign body of right eyelid and periocular area, initial encounter (principal); Z79.899 Other long term (current) drug therapy; Z88.1 Allergy status to other antibiotic agents; X58.XXXA Exposure to other specified factors, initial encounter
CPT/HCPCS: 12011; 99283